=== PATIENT | male | born 1990 | race Caucasian/White ===

== ENCOUNTER 2020-01-12 01:46 | Inpatient (IN) ==
[2020-01-12] MEDS ORDERED: LORazepam 2 mg VIAL 1 ml ONE ×2 (02:05→02:16)
[2020-01-12] MEDS ORDERED: LORazepam 2 mg VIAL 1 ml IM ONE (02:10)
[2020-01-12] MEDS ORDERED: Haloperidol 5 mg/ml SDV IV/IM 5 MG/ML AMP IM ONE (02:10)
[2020-01-12] MEDS ORDERED: diPHENhydraMINE IV 50 MG/ML 1 ml VIAL (BENADRYL) IM ONE (02:10)
[2020-01-12] MEDS ORDERED: Haloperidol 5 mg/ml SDV IV/IM 5 MG/ML AMP ONE (02:16)
[2020-01-12] MEDS ORDERED: diPHENhydraMINE IV 50 MG/ML 1 ml VIAL (BENADRYL) ONE (02:16)
[2020-01-12 02:34] LABS: ABS Eosinophils 0.1 10^3/ul (0-0.6); ABS Lymphocytes 1.6 10^3/ul (1.0-4.8); ABS Monocytes 0.7 10^3/ul (0-0.8); Hematocrit 42 % (42-52); Hemoglobin 15.1 g/dL (14.0-18.0); Lymphocyte % 21.9 %; Mean Corpuscular HGB Conc 36 g/dL (31-36); Mean Corpuscular Hemoglobin 31 pg (27-31); Mean Corpuscular Volume 86 fL (80-94); Mean Platelet Volume 8.5 fL (7.4-10.4); Platelet Count 257 10^3/uL (150-450); Red Blood Count 4.87 10^6 /uL (4.18-5.48); Red Cell Distribution Width 13 % (10-15); White Blood Count 7.5 10^3/uL (3.5-10.8)
[2020-01-12 02:48] LABS: ALT 25 U/L (7-52); AST 34 U/L (13-39); Albumin 4.7 g/dL (3.2-5.2); Albumin/Globulin Ratio 1.8 (1-3); Alkaline Phosphatase 40 U/L (34-104); Anion Gap 11 mmol/L (2-11); BUN/Creatinine Ratio 14.5 (8-20); Blood Urea Nitrogen 16 mg/dL (6-24); CO2 Carbon Dioxide 24 mmol/L (22-32); Calcium 10.4 mg/dL (8.6-10.3); Chloride 104 mmol/L (101-111); EGFR African American 95.8 (>60); EGFR Non-African American 79.1 (>60); Globulin 2.6 g/dL (2-4); Glucose 121 mg/dL (70-100); Potassium 2.9 mmol/L (3.5-5.0); Sodium 139 mmol/L (135-145); Total Protein 7.3 g/dL (6.4-8.9)
[2020-01-12 03:18] LABS: Acetaminophen < 15 mcg/mL; Alcohol, S < 10 mg/dL (<10); Salicylate < 2.50 mg/dL (<30)
[2020-01-12 03:33] LABS: TSH (Thyroid Stimulating Horm) 1.28 mcIU/mL (0.34-5.60)
[2020-01-12] MEDS ORDERED: KCL 10 MEQ/100 ML IVPREMIX 100 ml BAG IV SCH (06:00)
[2020-01-12] MEDS ORDERED: Potassium Chlor 20 meq TAB.ER PO ONE (09:06)
[2020-01-12] MEDS: KCL premix 10 MEQ/50 ML IVPREMIX x 4 RUNS IV SCH ×2 (09:07→09:08)
[2020-01-12 10:06] LABS: Urine Appearance Cloudy; Urine Bilirubin Negative (Negative); Urine Blood Negative (Negative); Urine Color Yellow; Urine Glucose Negative (Negative); Urine Ketones Trace (Negative); Urine Nitrite Negative (Negative); Urine Protein Negative (Negative); Urine Specific Gravity 1.026 (1.010-1.030); Urine Urobilinogen Negative (Negative)
[2020-01-12 10:20] LABS: Urine Benzodiazepine Screen None Detected (None Detect); Urine Opiates Screen None Detected (None Detect)
[2020-01-12] MEDS ORDERED: Al Hydrox/Mg Hydrox/Simet LIQ 30 ML UDC PO PRN (10:49)
[2020-01-12] MEDS: Lithium Carbonate ER 450mg TAB PO SCH (22:16)
[2020-01-13 08:37] LABS: HDL Cholesterol 52.4 mg/dL
[2020-01-13] MEDS: Lithium Carbonate ER 450mg TAB PO SCH ×3 (09:30→21:18)
[2020-01-13] MEDS: Potassium Chlor 20 meq TAB.ER PO SCH (09:30)
[2020-01-14] MEDS: LORazepam 1 mg TAB (*) PO PRN ×2 (02:39→19:55)
[2020-01-14] MEDS: Lithium Carbonate ER 450mg TAB PO SCH ×2 (09:14→21:26)
[2020-01-14] MEDS: Potassium Chlor 20 meq TAB.ER PO SCH (09:14)
[2020-01-15] MEDS: LORazepam 1 mg TAB (*) PO PRN ×2 (02:43→18:05)
[2020-01-15] MEDS: Potassium Chlor 20 meq TAB.ER PO SCH (10:03)
[2020-01-15] MEDS: Lithium Carbonate ER 450mg TAB PO SCH ×2 (10:07→21:04)
[2020-01-15] MEDS: Hydrocortisone 0.5% OINT 1 TUBE TOPICAL SCH (21:57)
[2020-01-16] MEDS: Lithium Carbonate ER 450mg TAB PO SCH ×2 (07:27→20:38)
[2020-01-16] MEDS: Potassium Chlor 20 meq TAB.ER PO SCH (07:30)
[2020-01-16] MEDS: Hydrocortisone 0.5% OINT 1 TUBE TOPICAL SCH ×2 (07:32→20:34)
[2020-01-16] MEDS: Nicotine PATCH 21 MG/24 HR PATCH TRANSDERM SCH (13:42)
[2020-01-16] MEDS: Nicotine GUM 4MG FRUIT FLAVOR PO PRN ×4 (13:44→22:51)
[2020-01-16] MEDS: LORazepam 1 mg TAB (*) PO PRN (22:47)
[2020-01-17] MEDS: Nicotine GUM 4MG FRUIT FLAVOR PO PRN ×6 (03:19→21:48)
[2020-01-17] MEDS: Lithium Carbonate ER 450mg TAB PO SCH ×2 (08:05→21:44)
[2020-01-17] MEDS: Nicotine PATCH 21 MG/24 HR PATCH TRANSDERM SCH (08:06)
[2020-01-17] MEDS: Hydrocortisone 0.5% OINT 1 TUBE TOPICAL SCH ×2 (08:08→21:52)
[2020-01-17] MEDS: LORazepam 1 mg TAB (*) PO PRN (11:54)
[2020-01-17] MEDS: Potassium Chlor 20 meq TAB.ER PO SCH (21:52)
[2020-01-18] MEDS: Nicotine GUM 4MG FRUIT FLAVOR PO PRN ×2 (09:28→14:46)
[2020-01-18] MEDS: Nicotine PATCH 21 MG/24 HR PATCH TRANSDERM SCH (09:28)
[2020-01-18] MEDS: Lithium Carbonate ER 450mg TAB PO SCH ×2 (09:29→21:23)
[2020-01-18] MEDS: Hydrocortisone 0.5% OINT 1 TUBE TOPICAL SCH ×2 (09:29→21:23)
[2020-01-18] MEDS: LORazepam 1 mg TAB (*) PO PRN (14:46)
[2020-01-19] MEDS: Lithium Carbonate ER 450mg TAB PO SCH ×2 (09:49→20:41)
[2020-01-19] MEDS: Hydrocortisone 0.5% OINT 1 TUBE TOPICAL SCH ×2 (09:50→20:46)
[2020-01-19] MEDS: Nicotine PATCH 21 MG/24 HR PATCH TRANSDERM SCH (09:52)
[2020-01-19] MEDS: Nicotine GUM 4MG FRUIT FLAVOR PO PRN ×4 (09:52→20:45)
[2020-01-19] MEDS: LORazepam 1 mg TAB (*) PO PRN (12:51)
[2020-01-20] MEDS: Lithium Carbonate ER 450mg TAB PO SCH ×2 (09:05→22:23)
[2020-01-20] MEDS: Hydrocortisone 0.5% OINT 1 TUBE TOPICAL SCH (09:05)
[2020-01-20] MEDS: Nicotine PATCH 21 MG/24 HR PATCH TRANSDERM SCH (09:08)
[2020-01-20] MEDS: Nicotine GUM 4MG FRUIT FLAVOR PO PRN ×2 (11:56→14:03)
[2020-01-20] MEDS: LORazepam 1 mg TAB (*) PO PRN ×2 (12:53→21:19)
[2020-01-20] MEDS ORDERED: LORazepam 1 mg TAB (*) PO ONE (17:06)
[2020-01-21] MEDS: Nicotine PATCH 21 MG/24 HR PATCH TRANSDERM SCH (07:48)
[2020-01-21] MEDS: Lithium Carbonate ER 450mg TAB PO SCH (10:52)
[2020-01-21] MEDS: Nicotine GUM 4MG FRUIT FLAVOR PO PRN ×3 (10:56→23:01)
[2020-01-21] MEDS: LORazepam 1 mg TAB (*) PO PRN ×2 (12:44→23:00)
[2020-01-22] MEDS: Nicotine PATCH 21 MG/24 HR PATCH TRANSDERM SCH (08:04)
[2020-01-22] MEDS: Nicotine GUM 4MG FRUIT FLAVOR PO PRN ×3 (10:15→16:18)
[2020-01-22] MEDS: LORazepam 1 mg TAB (*) PO PRN (14:08)
[2020-01-22 17:43] LABS: Chlamydia trachomatis NAA Negative (Negative); Neisseria gonorrhoeae (GC) NAA Negative (Negative)
[2020-01-23] MEDS: Nicotine PATCH 21 MG/24 HR PATCH TRANSDERM SCH (08:09)
[2020-01-23] MEDS: LORazepam 1 mg TAB (*) PO PRN (08:10)
[2020-01-23] MEDS: Nicotine GUM 4MG FRUIT FLAVOR PO PRN (08:10)
[2020-01-24] MEDS: Nicotine GUM 4MG FRUIT FLAVOR PO PRN ×3 (10:03→20:27)
[2020-01-24] MEDS: Nicotine PATCH 21 MG/24 HR PATCH TRANSDERM SCH (10:03)
[2020-01-24] MEDS: LORazepam 1 mg TAB (*) PO PRN ×2 (10:50→17:35)
[2020-01-25] MEDS: LORazepam 1 mg TAB (*) PO PRN (08:58)
[2020-01-25] MEDS: Nicotine PATCH 21 MG/24 HR PATCH TRANSDERM SCH (08:59)
[2020-01-25] MEDS: Nicotine GUM 4MG FRUIT FLAVOR PO PRN ×2 (09:06→16:14)
[2020-01-26] MEDS: LORazepam 1 mg TAB (*) PO PRN ×3 (03:13→18:53)
[2020-01-26] MEDS: Nicotine PATCH 21 MG/24 HR PATCH TRANSDERM SCH (09:33)
[2020-01-26] MEDS: Nicotine GUM 4MG FRUIT FLAVOR PO PRN (16:04)
[2020-01-27] MEDS: LORazepam 1 mg TAB (*) PO PRN (06:26)
[2020-01-27] MEDS: Nicotine PATCH 21 MG/24 HR PATCH TRANSDERM SCH (08:48)
[2020-01-27] MEDS: Nicotine GUM 4MG FRUIT FLAVOR PO PRN ×2 (12:40→18:26)
[2020-01-27] MEDS: clonazePAM 1 mg TAB(*) PO PRN (18:25)
[2020-01-28] MEDS: clonazePAM 1 mg TAB(*) PO PRN (05:15)
[2020-01-28 08:17] VITALS: BP 137/81
[2020-01-28] MEDS: Nicotine PATCH 21 MG/24 HR PATCH TRANSDERM SCH (08:30)
== END 2020-01-28 11:03 | disposition home or self-care (01) | DRG 885 ==
LOC: ED 01:46 → BSU 10:50
PROVIDERS: ADMIT Psychiatry & Neurology Psychiatry; ATTEND Psychiatry & Neurology Psychiatry

== ENCOUNTER 2020-03-14 19:38 | Inpatient (IN) ==
[2020-03-14 20:07] LABS: ABS Basophils 0.1 10^3/ul (0-0.2); ABS Eosinophils 0.3 10^3/ul (0-0.6); ABS Lymphocytes 1.3 10^3/ul (1.0-4.8); ABS Monocytes 0.7 10^3/ul (0-0.8); ABS Neutrophils 3.7 10^3/ul (1.5-7.7); Eosinophil % 4.3 %; Hematocrit 45 % (42-52); Hemoglobin 15.5 g/dL (14.0-18.0); Lymphocyte % 21.6 %; Mean Corpuscular HGB Conc 35 g/dL (31-36); Mean Corpuscular Hemoglobin 31 pg (27-31); Mean Corpuscular Volume 89 fL (80-94); Mean Platelet Volume 8.1 fL (7.4-10.4); Platelet Count 250 10^3/uL (150-450); Red Blood Count 4.99 10^6 /uL (4.18-5.48); Red Cell Distribution Width 13 % (10-15); White Blood Count 6.1 10^3/uL (3.5-10.8)
[2020-03-14 20:39] LABS: ALT 25 U/L (7-52); AST 30 U/L (13-39); Albumin 4.7 g/dL (3.2-5.2); Albumin/Globulin Ratio 1.7 (1-3); Alkaline Phosphatase 61 U/L (34-104); Anion Gap 12 mmol/L (2-11); BUN/Creatinine Ratio 13.8 (8-20); Blood Urea Nitrogen 16 mg/dL (6-24); CO2 Carbon Dioxide 22 mmol/L (22-32); Calcium 9.9 mg/dL (8.6-10.3); Chloride 108 mmol/L (101-111); EGFR African American 90.1 (>60); EGFR Non-African American 74.4 (>60); Globulin 2.7 g/dL (2-4); Glucose 110 mg/dL (70-100); Sodium 142 mmol/L (135-145); Total Protein 7.4 g/dL (6.4-8.9)
[2020-03-14 21:25] LABS: Urine Appearance Cloudy; Urine Bilirubin Negative (Negative); Urine Blood Negative (Negative); Urine Color Amber; Urine Glucose Negative (Negative); Urine Ketones Trace (Negative); Urine Nitrite Negative (Negative); Urine Protein 1+(30 mg/dL) (Negative); Urine Specific Gravity 1.031 (1.010-1.030); Urine Urobilinogen Negative (Negative)
[2020-03-14 21:27] LABS: Acetaminophen < 15 mcg/mL; Alcohol, S < 10 mg/dL (<10); Salicylate < 2.50 mg/dL (<30)
[2020-03-14 21:30] LABS: Urine Bacteria Absent (Absent); Urine Red Blood Cell Trace(0-2/hpf) (Absent); Urine White Blood Cell Trace(0-5/hpf) (Absent)
[2020-03-14 21:42] LABS: TSH Ultra Thyroid Stim Horm 1.27 mcIU/mL (0.34-5.60)
[2020-03-14 21:44] LABS: Urine Benzodiazepine Screen None Detected (None Detect); Urine Cannabinoids Screen Presumptive Positive (None Detect); Urine Opiates Screen None Detected (None Detect)
[2020-03-15] MEDS ORDERED: diPHENhydraMINE IV 50 MG/ML 1 ml VIAL (BENADRYL) IM ONE (00:43)
[2020-03-15] MEDS ORDERED: Haloperidol 5 mg/ml SDV IV/IM 5 MG/ML AMP IM ONE (00:43)
[2020-03-15] MEDS ORDERED: LORazepam 2 mg VIAL 1 ml ONE (00:46)
[2020-03-15] MEDS: LORazepam 2 mg VIAL 1 ml IM ONE ×2 (00:50→01:11)
[2020-03-15] MEDS ORDERED: Ziprasidone IM 20 mg VIAL 1 ml VIAL IM ONE (02:32)
[2020-03-15] MEDS ORDERED: Al Hydrox/Mg Hydrox/Simet LIQ 30 ML UDC PO PRN (05:26)
[2020-03-15] MEDS ORDERED: Vitamin THERAPEUTIC TAB PO SCH (09:00)
[2020-03-16] MEDS ORDERED: Haloperidol 5 mg/ml SDV IV/IM 5 MG/ML AMP ONE (08:04)
[2020-03-16] MEDS ORDERED: LORazepam 2 mg VIAL 1 ml ONE (08:04)
[2020-03-16] MEDS ORDERED: diPHENhydraMINE IV 50 MG/ML 1 ml VIAL (BENADRYL) ONE (08:04)
[2020-03-16] MEDS ORDERED: Haloperidol 5 mg/ml SDV IV/IM 5 MG/ML AMP IM ONE (08:15)
[2020-03-16] MEDS ORDERED: Lorazepam PYXIS KEY PRN (08:16)
[2020-03-16] MEDS ORDERED: LORazepam 2 mg VIAL 1 ml IM ONE (08:16)
[2020-03-16] MEDS ORDERED: diPHENhydraMINE IV 50 MG/ML 1 ml VIAL (BENADRYL) IM ONE (08:34)
[2020-03-17 08:26] LABS: HDL Cholesterol 49.9 mg/dL
[2020-03-17] MEDS ORDERED: Haloperidol 5 mg/ml SDV IV/IM 5 MG/ML AMP ONE (14:49)
[2020-03-17] MEDS ORDERED: Lorazepam PYXIS KEY ONE (14:49)
[2020-03-17] MEDS ORDERED: LORazepam 2 mg VIAL 1 ml ONE (14:49)
[2020-03-17] MEDS ORDERED: diPHENhydraMINE IV 50 MG/ML 1 ml VIAL (BENADRYL) ONE (14:49)
[2020-03-19] MEDS ORDERED: Lorazepam PYXIS KEY PRN (12:11)
[2020-03-19] MEDS ORDERED: LORazepam 2 mg VIAL 1 ml IM ONE (12:11)
[2020-03-19] MEDS: Nicotine PATCH 21 MG/24 HR PATCH TRANSDERM SCH (12:38)
[2020-03-19] MEDS: Nicotine GUM 2MG FRUIT FLAVOR PO PRN ×2 (12:39→21:33)
[2020-03-20] MEDS: Nicotine PATCH 21 MG/24 HR PATCH TRANSDERM SCH (07:35)
[2020-03-20] MEDS: Nicotine GUM 2MG FRUIT FLAVOR PO PRN (07:39)
[2020-03-20] MEDS ORDERED: diPHENhydraMINE IV 50 MG/ML 1 ml VIAL (BENADRYL) ONE (14:57)
[2020-03-20] MEDS ORDERED: Haloperidol 5 mg/ml SDV IV/IM 5 MG/ML AMP ONE (14:57)
[2020-03-20] MEDS ORDERED: LORazepam 2 mg VIAL 1 ml ONE (14:58)
[2020-03-21] MEDS: Nicotine PATCH 21 MG/24 HR PATCH TRANSDERM SCH (08:03)
[2020-03-21] MEDS: Nicotine GUM 2MG FRUIT FLAVOR PO PRN (08:05)
[2020-03-21] MEDS ORDERED: Haloperidol 5 mg/ml SDV IV/IM 5 MG/ML AMP IM ONE (16:10)
[2020-03-21] MEDS ORDERED: LORazepam 2 mg VIAL 1 ml IM ONE (16:10)
[2020-03-21] MEDS ORDERED: diPHENhydraMINE IV 50 MG/ML 1 ml VIAL (BENADRYL) IM ONE (16:10)
[2020-03-21] MEDS ORDERED: diPHENhydraMINE IV 50 MG/ML 1 ml VIAL (BENADRYL) ONE (16:12)
[2020-03-21] MEDS ORDERED: Haloperidol 5 mg/ml SDV IV/IM 5 MG/ML AMP ONE (16:12)
[2020-03-21] MEDS ORDERED: LORazepam 2 mg VIAL 1 ml ONE (16:13)
[2020-03-22] MEDS: Nicotine PATCH 21 MG/24 HR PATCH TRANSDERM SCH (08:47)
[2020-03-22] MEDS: Nicotine GUM 2MG FRUIT FLAVOR PO PRN (08:48)
[2020-03-22] MEDS ORDERED: Lorazepam PYXIS KEY ONE (09:50)
[2020-03-22] MEDS ORDERED: diPHENhydraMINE IV 50 MG/ML 1 ml VIAL (BENADRYL) ONE (09:51)
[2020-03-22] MEDS ORDERED: Haloperidol 5 mg/ml SDV IV/IM 5 MG/ML AMP ONE (09:51)
[2020-03-22] MEDS ORDERED: LORazepam 2 mg VIAL 1 ml ONE (09:51)
[2020-03-23] MEDS: Nicotine GUM 2MG FRUIT FLAVOR PO PRN ×2 (07:43→11:53)
[2020-03-23] MEDS: Nicotine PATCH 21 MG/24 HR PATCH TRANSDERM SCH (07:43)
[2020-03-24] MEDS: Nicotine PATCH 21 MG/24 HR PATCH TRANSDERM SCH ×2 (08:24→11:00)
[2020-03-24] MEDS: Nicotine GUM 2MG FRUIT FLAVOR PO PRN (17:53)
[2020-03-24] MEDS ORDERED: diPHENhydraMINE IV 50 MG/ML 1 ml VIAL (BENADRYL) IM ONE ×2 (20:46)
[2020-03-24] MEDS ORDERED: Haloperidol 5 mg/ml SDV IV/IM 5 MG/ML AMP IM ONE (20:46)
[2020-03-24] MEDS ORDERED: Haloperidol 5 mg/ml SDV IV/IM 5 MG/ML AMP ONE (20:59)
[2020-03-24] MEDS ORDERED: diPHENhydraMINE IV 50 MG/ML 1 ml VIAL (BENADRYL) ONE (20:59)
[2020-03-25] MEDS: Nicotine PATCH 21 MG/24 HR PATCH TRANSDERM SCH ×2 (10:14→14:01)
[2020-03-25] MEDS: Nicotine GUM 2MG FRUIT FLAVOR PO PRN ×2 (14:03→18:36)
[2020-03-26] MEDS: Nicotine PATCH 21 MG/24 HR PATCH TRANSDERM SCH (08:24)
[2020-03-26] MEDS: Nicotine GUM 2MG FRUIT FLAVOR PO PRN (13:13)
[2020-03-26] MEDS ORDERED: Paliperidone SUSTENNA 234 MG/1.5 ML IM ONE (14:52)
[2020-03-27] MEDS: Nicotine PATCH 21 MG/24 HR PATCH TRANSDERM SCH (08:40)
[2020-03-27] MEDS: Nicotine GUM 2MG FRUIT FLAVOR PO PRN ×2 (10:21→13:52)
[2020-03-28] MEDS: Nicotine PATCH 21 MG/24 HR PATCH TRANSDERM SCH ×2 (08:18→12:39)
[2020-03-28] MEDS: Nicotine GUM 2MG FRUIT FLAVOR PO PRN ×2 (12:40→18:46)
[2020-03-29] MEDS: Nicotine PATCH 21 MG/24 HR PATCH TRANSDERM SCH ×2 (07:56→09:08)
[2020-03-29] MEDS: Nicotine GUM 2MG FRUIT FLAVOR PO PRN ×2 (09:08→15:30)
[2020-03-29] MEDS ORDERED: Paliperidone SUSTENNA 156 MG/1 ML IM ONE (11:00)
[2020-03-30] MEDS: Nicotine PATCH 21 MG/24 HR PATCH TRANSDERM SCH (07:43)
[2020-03-30] MEDS: Nicotine GUM 2MG FRUIT FLAVOR PO PRN ×3 (10:35→17:25)
[2020-03-31] MEDS: Nicotine PATCH 21 MG/24 HR PATCH TRANSDERM SCH (11:18)
[2020-03-31] MEDS: Nicotine GUM 2MG FRUIT FLAVOR PO PRN ×3 (11:18→18:54)
[2020-04-01] MEDS: Nicotine PATCH 21 MG/24 HR PATCH TRANSDERM SCH ×2 (08:14→10:49)
[2020-04-01] MEDS: Nicotine GUM 2MG FRUIT FLAVOR PO PRN (10:49)
[2020-04-02] MEDS: Nicotine PATCH 21 MG/24 HR PATCH TRANSDERM SCH (09:58)
[2020-04-03] MEDS: Nicotine PATCH 21 MG/24 HR PATCH TRANSDERM SCH ×2 (10:05→11:23)
[2020-04-03] MEDS: Nicotine GUM 2MG FRUIT FLAVOR PO PRN ×3 (11:25→18:16)
[2020-04-04] MEDS: Nicotine PATCH 21 MG/24 HR PATCH TRANSDERM SCH ×2 (10:44→16:12)
[2020-04-04] MEDS: Nicotine GUM 2MG FRUIT FLAVOR PO PRN ×2 (16:12→18:16)
[2020-04-05] MEDS: Nicotine PATCH 21 MG/24 HR PATCH TRANSDERM SCH ×2 (09:24→14:34)
[2020-04-05] MEDS: Nicotine GUM 2MG FRUIT FLAVOR PO PRN ×2 (14:35→18:19)
[2020-04-06] MEDS: Nicotine PATCH 21 MG/24 HR PATCH TRANSDERM SCH (08:09)
[2020-04-06] MEDS: Nicotine GUM 2MG FRUIT FLAVOR PO PRN ×4 (08:12→17:50)
[2020-04-07] MEDS: Nicotine PATCH 21 MG/24 HR PATCH TRANSDERM SCH (08:12)
[2020-04-07] MEDS: Nicotine GUM 2MG FRUIT FLAVOR PO PRN ×3 (08:13→14:02)
[2020-04-07 09:18] VITALS: BP 104/61
== END 2020-04-07 14:30 | disposition home or self-care (01) | DRG 885 ==
LOC: ED 19:38 → BSU 03-15 00:36
PROVIDERS: ADMIT Psychiatry & Neurology Psychiatry; ATTEND Psychiatry & Neurology Psychiatry

== ENCOUNTER 2023-07-14 09:11 | Inpatient (IN) ==
[2023-07-14 10:28] LABS: ABS Basophils 0.1 10^3/uL (0.0-0.1); ABS Eosinophils 0.2 10^3/uL (0.0-0.5); ABS Lymphocytes 1.8 10^3/uL (1.0-4.8); ABS Monocytes 0.7 10^3/uL (0.0-1.1); ABS Neutrophils 4.5 10^3/uL (1.5-7.6); Eosinophil % 2.1 %; Hematocrit 42.3 % (38-53); Hemoglobin 14.9 g/dL (13.2-16.3); Lymphocyte % 24.3 %; Mean Corpuscular Hemoglobin 30.8 pg (27-33); Mean Corpuscular Hgb Conc 35.2 g/dL (31-36); Mean Corpuscular Volume 87.6 fL (80-97); Mean Platelet Volume 7.8 fL (7.5-11.2); Platelet Count 268 10^3/uL (150-450); Red Blood Count 4.83 10^6/uL (4.06-5.63); Red Cell Distribution Width 13.3 % (12-17); White Blood Count 7.2 10^3/uL (3.6-10.2)
[2023-07-14 10:56] LABS: Urine Appearance Clear; Urine Bilirubin Negative (Negative); Urine Blood Negative (Negative); Urine Color Yellow; Urine Glucose Negative (Negative); Urine Ketones Negative (Negative); Urine Nitrite Negative (Negative); Urine Protein Negative (Negative); Urine Urobilinogen Negative (Negative)
[2023-07-14 10:58] LABS: ALT 37 U/L (7-52); AST 45 U/L (13-39); Albumin 4.3 g/dL (3.2-5.2); Albumin/Globulin Ratio 1.5 (1-3); Alkaline Phosphatase 77 U/L (35-149); Anion Gap 10 mmol/L (2-16); Blood Urea Nitrogen 13 mg/dL (6-24); CO2 Carbon Dioxide 23 mmol/L (22-32); Calcium 9.3 mg/dL (8.6-10.3); Chloride 105 mmol/L (101-111); Creatinine, Serum 0.98 mg/dL (0.67-1.17); Globulin 2.8 g/dL (2-4); Glucose 108 mg/dL (70-100); Potassium 4.2 mmol/L (3.5-5.0); Sodium 138 mmol/L (135-145); Total Bilirubin 0.5 mg/dL (0.2-1.0); Total Protein 7.1 g/dL (6.4-8.9); eGFR CKD-EPI 105.1 (>60)
[2023-07-14 11:03] LABS: Urine Benzodiazepine Screen None Detected (None Detect); Urine Cannabinoids Screen None Detected (None Detect); Urine Opiates Screen None Detected (None Detect)
[2023-07-14 12:02] LABS: Acetaminophen < 15 mcg/mL; Alcohol, S < 13 mg/dL (<13); Salicylate < 2.50 mg/dL (<30)
[2023-07-14 12:16] LABS: TSH Ultra Thyroid Stim Horm 0.94 mcIU/mL (0.34-5.60)
[2023-07-14] MEDS ORDERED: Nicotine PATCH 21 MG/24 HR PATCH ONE (14:15)
[2023-07-14] MEDS ORDERED: Benzocaine/Menthol LOZ ONE (14:18)
[2023-07-14] MEDS: Nicotine PATCH 21 MG/24 HR PATCH TRANSDERM SCH (15:15)
[2023-07-14] MEDS: Benzocaine/Menthol LOZ PO PRN (18:01)
[2023-07-14] MEDS ORDERED: Haloperidol 5 mg/ml SDV IV/IM 5 MG/ML AMP ONE (23:18)
[2023-07-15] MEDS ORDERED: Haloperidol 5 mg/ml SDV IV/IM 5 MG/ML AMP IM ONE (01:00)
[2023-07-15] MEDS: Nicotine PATCH 21 MG/24 HR PATCH TRANSDERM SCH (10:12)
[2023-07-15] MEDS: Benzocaine/Menthol LOZ PO PRN ×3 (10:12→21:29)
[2023-07-15] MEDS ORDERED: Nicotine GUM 2MG FRUIT FLAVOR PO ONE (21:28)
[2023-07-16] MEDS: Benzocaine/Menthol LOZ PO PRN ×4 (03:58→22:53)
[2023-07-16] MEDS: Nicotine PATCH 21 MG/24 HR PATCH TRANSDERM SCH (09:51)
[2023-07-17] MEDS: Benzocaine/Menthol LOZ PO PRN ×3 (05:15→21:33)
[2023-07-17 07:53] LABS: HDL Cholesterol 49.4 mg/dL
[2023-07-17] MEDS: Nicotine PATCH 21 MG/24 HR PATCH TRANSDERM SCH (08:47)
[2023-07-17] MEDS ORDERED: Paliperidone SUSTENNA 234 MG/1.5 ML IM ONE (10:54)
[2023-07-17] MEDS: Nicotine GUM 4MG FRUIT FLAVOR PO PRN ×2 (17:36→20:21)
[2023-07-18] MEDS: Nicotine GUM 4MG FRUIT FLAVOR PO PRN ×4 (04:27→13:41)
[2023-07-18] MEDS: Nicotine PATCH 21 MG/24 HR PATCH TRANSDERM SCH ×2 (08:50→10:54)
[2023-07-18] MEDS: Benzocaine/Menthol LOZ PO PRN (10:55)
[2023-07-18] MEDS ORDERED: Ondansetron ODT 4 mg TAB 4 MG TAB PO ONE (18:30)
[2023-07-18] MEDS ORDERED: Ondansetron ODT 4 mg TAB 4 MG TAB ONE (18:32)
[2023-07-19] MEDS: Nicotine PATCH 21 MG/24 HR PATCH TRANSDERM SCH (08:26)
[2023-07-19] MEDS: Nicotine GUM 4MG FRUIT FLAVOR PO PRN ×3 (08:29→15:56)
[2023-07-19] MEDS: Benzocaine/Menthol LOZ PO PRN ×3 (09:27→15:58)
[2023-07-20] MEDS: Nicotine GUM 4MG FRUIT FLAVOR PO PRN ×3 (07:37→18:43)
[2023-07-20] MEDS: Nicotine PATCH 21 MG/24 HR PATCH TRANSDERM SCH (08:40)
[2023-07-20] MEDS ORDERED: Paliperidone SUSTENNA 156 MG/1 ML IM ONE (09:00)
[2023-07-20] MEDS: Benzocaine/Menthol LOZ PO PRN ×2 (12:51→19:33)
[2023-07-20] MEDS: Senna TAB 8.6 mg TAB PO PRN (19:30)
[2023-07-21] MEDS: Benzocaine/Menthol LOZ PO PRN ×4 (04:14→17:27)
[2023-07-21] MEDS: Nicotine GUM 4MG FRUIT FLAVOR PO PRN ×5 (05:47→17:28)
[2023-07-21] MEDS: Nicotine PATCH 21 MG/24 HR PATCH TRANSDERM SCH (07:08)
[2023-07-21] MEDS: Senna TAB 8.6 mg TAB PO PRN (07:09)
[2023-07-22] MEDS: Benzocaine/Menthol LOZ PO PRN ×3 (02:08→17:15)
[2023-07-22] MEDS: Nicotine GUM 4MG FRUIT FLAVOR PO PRN ×3 (07:15→14:08)
[2023-07-22] MEDS: Nicotine PATCH 21 MG/24 HR PATCH TRANSDERM SCH (07:15)
[2023-07-22] MEDS: Senna TAB 8.6 mg TAB PO PRN (07:15)
[2023-07-23] MEDS: Nicotine GUM 4MG FRUIT FLAVOR PO PRN ×6 (04:52→20:34)
[2023-07-23] MEDS: Nicotine PATCH 21 MG/24 HR PATCH TRANSDERM SCH (09:02)
[2023-07-24] MEDS: Nicotine GUM 4MG FRUIT FLAVOR PO PRN ×5 (03:47→20:20)
[2023-07-24] MEDS: Nicotine PATCH 21 MG/24 HR PATCH TRANSDERM SCH (09:08)
[2023-07-25] MEDS: Nicotine GUM 4MG FRUIT FLAVOR PO PRN ×5 (03:55→21:18)
[2023-07-25] MEDS: Nicotine PATCH 21 MG/24 HR PATCH TRANSDERM SCH (08:33)
[2023-07-26] MEDS: Benzocaine/Menthol LOZ PO PRN (05:14)
[2023-07-26] MEDS: Nicotine PATCH 21 MG/24 HR PATCH TRANSDERM SCH (08:00)
[2023-07-26] MEDS: Nicotine GUM 4MG FRUIT FLAVOR PO PRN ×6 (08:00→19:53)
[2023-07-27] MEDS: Nicotine GUM 4MG FRUIT FLAVOR PO PRN ×4 (05:00→18:35)
[2023-07-27] MEDS: Nicotine PATCH 21 MG/24 HR PATCH TRANSDERM SCH (08:04)
[2023-07-27 15:27] LABS: Free T4 0.76 ng/dL (0.61-1.12)
[2023-07-27 16:03] LABS: HIV 4th Generation Nonreactive (Nonreactive)
[2023-07-27 16:34] LABS: Hepatitis C Antibody Negative (Negative)
[2023-07-27 18:21] LABS: TSH Ultra Thyroid Stim Horm 0.88 mcIU/mL (0.34-5.60)
[2023-07-27 21:28] LABS: Free T3 3.94 pg/mL (2.5-3.9)
[2023-07-28] MEDS: Benzocaine/Menthol LOZ PO PRN ×2 (05:14→12:41)
[2023-07-28] MEDS: Nicotine GUM 4MG FRUIT FLAVOR PO PRN ×3 (08:38→16:31)
[2023-07-28] MEDS: Nicotine PATCH 21 MG/24 HR PATCH TRANSDERM SCH (08:39)
[2023-07-29] MEDS: Nicotine GUM 4MG FRUIT FLAVOR PO PRN ×4 (05:32→18:05)
[2023-07-29] MEDS: Nicotine PATCH 21 MG/24 HR PATCH TRANSDERM SCH (08:04)
[2023-07-29] MEDS: Benzocaine/Menthol LOZ PO PRN (15:15)
[2023-07-30] MEDS: Benzocaine/Menthol LOZ PO PRN (03:28)
[2023-07-30] MEDS: Nicotine GUM 4MG FRUIT FLAVOR PO PRN ×3 (04:46→17:57)
[2023-07-30] MEDS: Nicotine PATCH 21 MG/24 HR PATCH TRANSDERM SCH (08:23)
[2023-07-31] MEDS: Nicotine GUM 4MG FRUIT FLAVOR PO PRN ×4 (06:13→21:13)
[2023-07-31] MEDS: Nicotine PATCH 21 MG/24 HR PATCH TRANSDERM SCH (08:28)
[2023-07-31] MEDS: Benzocaine/Menthol LOZ PO PRN ×2 (12:35→21:14)
[2023-07-31 20:41] LABS: Albumin 4.5 g/dL (3.2-5.2); Albumin/Globulin Ratio 1.8 (1-3); Calcium 9.9 mg/dL (8.6-10.3); Creatinine, Serum 0.96 mg/dL (0.67-1.17); Globulin 2.5 g/dL (2-4); Potassium 3.8 mmol/L (3.5-5.0); Total Bilirubin 0.4 mg/dL (0.2-1.0)
[2023-08-01] MEDS: Nicotine PATCH 21 MG/24 HR PATCH TRANSDERM SCH (09:04)
[2023-08-01] MEDS: Nicotine GUM 4MG FRUIT FLAVOR PO PRN ×4 (09:07→21:58)
[2023-08-01] MEDS: Senna TAB 8.6 mg TAB PO PRN (10:03)
[2023-08-01] MEDS: Benzocaine/Menthol LOZ PO PRN ×2 (12:59→21:58)
[2023-08-02] MEDS: Nicotine GUM 4MG FRUIT FLAVOR PO PRN ×3 (07:01→15:08)
[2023-08-02] MEDS: Nicotine PATCH 21 MG/24 HR PATCH TRANSDERM SCH (08:39)
[2023-08-02] MEDS: Benzocaine/Menthol LOZ PO PRN (12:30)
[2023-08-03] MEDS: Nicotine PATCH 21 MG/24 HR PATCH TRANSDERM SCH (08:30)
[2023-08-03] MEDS: Nicotine GUM 4MG FRUIT FLAVOR PO PRN ×4 (08:31→17:43)
[2023-08-03] MEDS: Benzocaine/Menthol LOZ PO PRN (15:16)
[2023-08-04] MEDS: Senna TAB 8.6 mg TAB PO PRN (08:35)
[2023-08-04] MEDS: Nicotine PATCH 21 MG/24 HR PATCH TRANSDERM SCH (08:35)
[2023-08-04] MEDS: Nicotine GUM 4MG FRUIT FLAVOR PO PRN ×2 (08:36→18:07)
[2023-08-05] MEDS: Nicotine PATCH 21 MG/24 HR PATCH TRANSDERM SCH (07:29)
[2023-08-05] MEDS: Benzocaine/Menthol LOZ PO PRN (12:06)
[2023-08-05] MEDS: Nicotine GUM 4MG FRUIT FLAVOR PO PRN ×2 (12:06→17:42)
[2023-08-06] MEDS: Nicotine GUM 4MG FRUIT FLAVOR PO PRN (06:29)
[2023-08-06] MEDS: Nicotine PATCH 21 MG/24 HR PATCH TRANSDERM SCH (08:09)
[2023-08-06 08:56] VITALS: BP 115/76
== END 2023-08-06 16:18 | disposition home or self-care (01) | DRG 885 ==
LOC: ED 09:11 → BSU 11:12 → EDHOLD 11:15 → BSU 11:20
PROVIDERS: ADMIT Student in an Organized Health Care Education/Training Program; ATTEND Student in an Organized Health Care Education/Training Program